=== PATIENT | female | born 1945 | race Caucasian/White ===

== ENCOUNTER 2017-03-31 20:29 | Emergency (ER) | payer BC ==
[2017-03-31 20:56] LABS: BASO % 0.1 % (0-6); EOS % 0.1 % (0-6); GRAN % 68.5 % (47-80); HEMATOCRIT 43.4 % (35.0-47.0); HEMOGLOBIN 14.9 gm/dl (11.6-16.0); LYMPH % 26.1 % (16-45); MEAN CELL VOLUME 86.1 fl (81-97); MEAN CORPUSCULAR HEMOGLOBIN 29.6 pg (27-33); MEAN CORPUSCULAR HGB CONC 34.3 g/dl (32-36); MEAN PLATELET VOLUME 9.4 fl (7.4-10.4); MONO % 5.2 % (0-9); PLATELET COUNT 302 K/uL (130-400); RED BLOOD COUNT 5.04 M/uL (3.80-5.40); RED CELL DISTRIBUTION WIDTH 12.7 % (11.5-14.5)
[2017-03-31] MEDS: 0.9 % SODIUM CHLORIDE 1000ML 1,000 ML IV SCH (21:10)
[2017-03-31] MEDS: ONDANSETRON HCL IV 4 MG/2 ML VIAL IVP ONE (21:10)
[2017-03-31 21:15] LABS: ALB/GLOB RATIO 1.5 (1.1-1.8); ALBUMIN 4.6 g/dL (4.0-5.0); ALKALINE PHOSPHATASE 53 U/L (35-104); ALT/SGPT 11 U/L (<33); AST/SGOT 18 U/L (10.0-35.0); BLOOD UREA NITROGEN 15 mg/dL (8-23); CREATININE 0.5 mg/dL (0.5-0.9); EST GLOMERULAR FILTRATION RATE > 60 mL/min; GLUCOSE,RANDOM 132 mg/dL (74-109); LIPASE 40 U/L (13-60); TOTAL PROTEIN 7.7 g/dL (6.6-8.7)
--- NOTE | 2017-03-31 21:15 | Emergency Department Record ---
History of Present Illness - General Chief Complaint: Abdominal Pain Stated Complaint: LOWER ABDOMINAL PAIN Time Seen by Provider: 03/31/17 20:47 Source: Patient Mode of Arrival: Ambulatory Limitations: No limitations - History of Present Illness Initial Comments: 71 yo female presents to ED for evaluation of lower abdominal pain symptoms that have been intermittent for the past 48 hours. Patient denies change in stools, fevers, chills, or urinary symptoms. Patient went to an urgent care earlier tonight for possible UTI and was told that her urine appeared normal.Patient does report that food worsens her symptoms. Patient denies previous abdominal surgery other than bladder suspension and JOAN. MD Complaint: Abdominal pain Onset/Timin -: Days(s) Location: LLQ, RLQ Radiation: None Migration to: No migration Severity: Mild Consistency: Intermittent Worsens With: Eating Associated Symptoms: Nausea - Related Data Patient : No Home Medications Medication Instructions Recorded Confirmed Last Taken Amlodipine Besylate [Norvasc] 5 mg PO DAILY 03/31/17 03/31/17 Unknown Aspirin [Aspir-Low] 81 mg PO DAILY 03/31/17 03/31/17 Unknown Calcium Carbonate/Vitamin D3 1 each PO DAILY 03/31/17 03/31/17 Unknown [Caltrate 600 Plus D3 Tablet] Levothyroxine Sodium [Synthroid] 137 mcg PO DAILY 03/31/17 03/31/17 Unknown Allergies Allergy/AdvReac Type Severity Reaction Status Date / Time iodine Allergy HIVES Verified 03/31/17 22:57 Travel Screening - Travel/Exposure Within Last 30 Days Have you traveled within the last 30 days?: No Review of Systems Constitutional: Denies: Chills, Fever, Malaise, Night sweats Eyes: Denies: Eye discharge, Eye pain ENT: Denies: Congestion, Ear pain, Epistaxis Respiratory: Denies: Cough, Dyspnea Cardiovascular: Denies: Chest pain, Dyspnea on exertion Endocrine: Denies: Fatigue, Heat or cold intolerance Gastrointestinal: Reports: Abdominal pain. Denies: Nausea, Vomiting Genitourinary: Denies: Dysuria, Frequency Musculoskeletal: Denies: Arthralgia, Back pain, Gout, Joint swelling Skin: Denies: Bruising, Change in color Neurological: Denies: Abnormal gait, Confusion, Headache, Seizure Psychiatric: Denies: Anxiety Hematological/Lymphatic: Denies: Anemia, Blood Clots Past Medical History - SOCIAL HISTORY Smoking Status: Never smoker Alcohol Use: None Drug Use: None - RESPIRATORY Hx Respiratory Disorders: No - CARDIOVASCULAR Hx Cardio Disorders: Yes Hx Hypertension: Yes - NEURO Hx Neuro Disorders: No - GI Hx GI Disorders: Yes Hx of Polyps: Yes (hx) - Hx Genitourinary Disorders: Yes Hx UTI: Yes (hx) - ENDOCRINE Hx Endocrine Disorders: Yes Hx Thyroid Disease: Yes (hypo) - MUSCULOSKELETAL Hx Musculoskeletal Disorders: No - PSYCH Hx Psych Problems: No - HEMATOLOGY/ONCOLOGY Hx Hematology/Oncology Disorders: No Family Medical History Any Significant Family History?: Yes Hx Cancer: Father *Cancer Comment: aunt, uncle Physical Exam - General General Appearance: Alert, Oriented x3, Cooperative, No acute distress (patient reports that she is pain-free currently) Limitations: No limitations - Head Head exam: Atraumatic, Normocephalic, Normal inspection Head exam detail: negative: Abrasion, Contusion, Barrera's sign, General tenderness, Hematoma, Laceration - Eye Eye exam: Normal appearance. negative: Conjunctival injection, Periorbital swelling, Periorbital tenderness, Scleral icterus - ENT Ear exam: negative: Auricular hematoma, Auricular trauma Nasal Exam: negative: Active bleeding, Discharge, Dried blood, Foreign body Mouth exam: negative: Drooling, Laceration, Muffled voice, Tongue elevation - Neck Neck exam: Normal inspection. negative: Meningismus, Tenderness - Respiratory Respiratory exam: Normal lung sounds bilaterally. negative: Rales, Respiratory distress, Rhonchi, Stridor - Cardiovascular Cardiovascular Exam: Regular rate, Normal rhythm, Normal heart sounds - GI/Abdominal GI/Abdominal exam: Soft. negative: Rebound, Rigid, Tenderness - Rectal Rectal exam: Deferred - exam: Deferred - Extremities Extremities exam: Normal inspection. negative: Calf tenderness, Pedal edema, Tenderness - Back Back exam: Denies: CVA tenderness (R), CVA tenderness (L) - Neurological Neurological exam: Alert, Normal gait, Oriented X3 - Psychiatric Psychiatric exam: Normal affect, Normal mood - Skin Skin exam: Normal color. negative: Abrasion Type of lesion: negative: abrasion Course Vital Signs 03/31/17 20:34 Temperature 98.4 F Pulse Rate 59 L Respiratory 18 Rate Blood Pressure 169/100 Pulse Ox 98 - Reevaluation(s) Reevaluation #1: 03/31/17 21:18 Labs reviewed and are grossly unremarkable for an acute process. UA pending. Reevaluation #2: 03/31/17 22:16 CT Abdomen and Pelvis: Diverticulosis without diverticulitis, ? thickening of the gallbladder fundus, further evaluation with US would be of benefit. Patient continues to be resting pain-free at this time, will arrange to bring the patient back in the morning for ultrasound of the gallbladder tomorrow morning. Patient and her daughter agree with the plan as discussed. Reevaluation #3: 03/31/17 22:41 Following placement of discharge instructions, patient has developed several (4 ) small areas of redness to the left shoulder, patient reports similar reaction that worsened after eating shellfish several years ago and is concerned about possible allergic reaction (? IV contrast). Patient denies any wheezing, difficulty in breathing, or throat swelling symptoms. Will administer Benadryl IV with the plan to reassess in the morning when she returns for her US. Patient and family agrees with the plan as discussed. Medical Decision Making - Lab Data Result diagrams: 03/31/17 20:50 03/31/17 20:50 Lab Results 03/31/17 Range/Units 20:50 WBC 9.0 (4.2-12.2) K/uL RBC 5.04 (3.80-5.40) M/uL Hgb 14.9 (11.6-16.0) gm/dl Hct 43.4 (35.0-47.0) % MCV 86.1 (81-97) fl MCH 29.6 (27-33) pg MCHC 34.3 (32-36) g/dl RDW 12.7 (11.5-14.5) % Plt Count 302 (130-400) K/uL MPV 9.4 (7.4-10.4) fl Gran % 68.5 (47-80) % Lymphocytes % 26.1 (16-45) % Monocytes % 5.2 (0-9) % Eosinophils % 0.1 (0-6) % Basophils % 0.1 (0-6) % Disposition Disposition: Discharge Clinical Impression: Abdominal pain Qualifiers: Abdominal location: generalized Qualified Code(s): R10.84 - Generalized abdominal pain Disposition: Home, Self-Care Condition: (2) Stable Instructions: Abdominal Pain (ED) Additional Instructions: Return to ED tomorrow morning around 8:15 for US of the abdomen. Follow-up with your family doctor in 1-3 days as directed. Forms: Patient Portal Access Time of Disposition: 22:27 Quality - Quality Measures Quality Measures: N/A - Blood Pressure Screening Does Patient Have Any of the Following: Active Dx of HTN Blood Pressure Classification: Hypertensive Reading Systolic Measurement: 161 Diastolic Measurement: 90 Screening for High Blood Pressure: Patient Exclusion, Hx of HTN [G9744]
[2017-03-31 21:22] LABS: URINE APPEARANCE CLEAR; URINE BILIRUBIN NEGATIVE (NEGATIVE); URINE COLOR YELLOW; URINE GLUCOSE (UA) NEGATIVE (NEGATIVE); URINE KETONE NEGATIVE (NEGATIVE); URINE LEUKOCYTE ESTERASE NEGATIVE (NEGATIVE); URINE NITRITE NEGATIVE (NEGATIVE); URINE PROTEIN NEGATIVE (NEGATIVE); URINE UROBILINOGEN 0.2 E.U./dL (0.20 - 1.00)
[2017-03-31 21:23] LABS: URINE BLOOD NEGATIVE (NEGATIVE)
[2017-03-31] MEDS: DIPHENHYDRAMINE HCL IV 50 MG/ML VIAL IVP ONE (22:44)
== END 2017-03-31 22:58 | disposition home or self-care (01) ==
LOC: ER 20:29 → EDBD 20:29 → ER 22:58
DX: R10.84 Generalized abdominal pain (principal); R11.0 Nausea; I10 Essential (primary) hypertension
CPT/HCPCS: 99284 ×2; 96374; 96375; 83690; 85025; 80053; 81003; 74177; Q9967; J2405; J1200; J7030

== ENCOUNTER 2017-04-01 08:16 | Emergency (ER) | payer BC ==
--- NOTE | 2017-04-01 08:29 | Emergency Department Record ---
History of Present Illness - General Chief Complaint: Abdominal Pain Stated Complaint: ULTRA SOUND OF GALL BLADDER Time Seen by Provider: 04/01/17 08:27 Source: Patient, RN notes reviewed - History of Present Illness Initial Comments: patient is feeling better and no abdominal pain and here for US of abd. Seen by Dr. Flores last night with CT scan of abd and pelvic essentially neg with a small area fundus thickening of GB and rad recommended US. Some diverticulosis. No fever today and she didn't want labs done because she feels better. - Related Data Previous Rx's Medication Instructions Recorded Dicyclomine HCl [Bentyl] 10 mg PO Q8H #20 cap 04/01/17 Allergies Allergy/AdvReac Type Severity Reaction Status Date / Time iodine Allergy HIVES Verified 03/31/17 22:57 Review of Systems Reviewed: No additional complaints except as noted below Constitutional: Reports: As per HPI. Denies: Chills, Fever, Malaise, Night sweats, Weakness, Weight change Eyes: Reports: As per HPI. Denies: Eye discharge, Eye pain, Photophobia, Vision change ENT: Reports: As per HPI. Denies: Congestion, Dental pain, Ear pain, Epistaxis , Hearing loss, Throat pain Respiratory: Reports: As per HPI. Denies: Cough, Dyspnea, Hemoptysis, Stridor, Wheezes Cardiovascular: Reports: As per HPI. Denies: Arrhythmia, Chest pain, Dyspnea on exertion, Edema, Murmurs, Orthopnea, Palpitations, Paroxysmal nocturnal dyspnea, Rheumatic Fever, Syncope Endocrine: Reports: As per HPI. Denies: Fatigue, Heat or cold intolerance, Polydipsia, Polyuria Gastrointestinal: Reports: As per HPI, Abdominal pain. Denies: Constipation, Diarrhea, Hematemesis, Hematochezia, Melena, Nausea, Vomiting Genitourinary: Reports: As per HPI. Denies: Abnormal menses, Discharge, Dyspareunia, Dysuria, Frequency, Hematuria, Incontinence, Retention, Urgency Musculoskeletal: Reports: As per HPI. Denies: Arthralgia, Back pain, Gout, Joint swelling, Myalgia, Neck pain Skin: Reports: As per HPI. Denies: Bruising, Change in color, Change in hair/ nails, Lesions, Pruritus, Rash Neurological: Reports: As per HPI. Denies: Abnormal gait, Confusion, Headache, Numbness, Paresthesias, Seizure, Tingling, Tremors, Vertigo, Weakness Psychiatric: Reports: As per HPI. Denies: Anxiety, Auditory hallucinations, Depression, Homicidal thoughts, Suicidal thoughts, Visual hallucinations Hematological/Lymphatic: Reports: As per HPI. Denies: Anemia, Blood Clots, Easy bleeding, Easy bruising, Swollen glands Past Medical History - SOCIAL HISTORY Smoking Status: Never smoker Drug Use: None - RESPIRATORY Hx Respiratory Disorders: No - CARDIOVASCULAR Hx Cardio Disorders: Yes Hx Hypertension: Yes - NEURO Hx Neuro Disorders: No - GI Hx GI Disorders: Yes Hx of Polyps: Yes (hx) - Hx Genitourinary Disorders: Yes Hx UTI: Yes (hx) - ENDOCRINE Hx Endocrine Disorders: Yes Hx Thyroid Disease: Yes (hypo) - MUSCULOSKELETAL Hx Musculoskeletal Disorders: No - PSYCH Hx Psych Problems: No - HEMATOLOGY/ONCOLOGY Hx Hematology/Oncology Disorders: No Family Medical History Hx Cancer: Father *Cancer Comment: aunt, uncle Physical Exam - General General Appearance: Alert, Oriented x3, Cooperative, No acute distress - Head Head exam: Normal inspection - Eye Eye exam: Normal appearance, PERRL Pupils: Normal accommodation - ENT ENT exam: Normal exam, Mucous membranes moist, Normal external ear exam, Normal orophraynx, TM's normal bilaterally Ear exam: Normal external inspection. negative: External canal tenderness Nasal Exam: Normal inspection. negative: Discharge, Sinus tenderness Mouth exam: Normal external inspection, Tongue normal Teeth exam: Normal inspection. negative: Dental caries Throat exam: Normal inspection. negative: Tonsillar erythema, Tonsillar exudate - Neck Neck exam: Normal inspection, Full ROM. negative: Tenderness - Respiratory Respiratory exam: Normal lung sounds bilaterally. negative: Respiratory distress - Cardiovascular Cardiovascular Exam: Regular rate, Normal rhythm, Normal heart sounds - GI/Abdominal GI/Abdominal exam: Soft, Normal bowel sounds. negative: Tenderness - Rectal Rectal exam: Deferred - exam: Deferred - Extremities Extremities exam: Normal inspection, Full ROM, Normal capillary refill. negative: Tenderness - Back Back exam: Reports: Normal inspection, Full ROM. Denies: Muscle spasm, Rash noted, Tenderness - Neurological Neurological exam: Alert, Normal gait, Oriented X3, Reflexes normal - Psychiatric Psychiatric exam: Normal affect, Normal mood - Skin Skin exam: Dry, Intact, Normal color, Warm Medical Decision Making - Data Complexity MDM Data: X-Ray Ordered and/or Reviewed (gall bladder stones) Disposition Clinical Impression: Gall bladder stones Abdominal pain Qualifiers: Abdominal location: lower abdomen, unspecified Qualified Code(s): R10.30 - Lower abdominal pain, unspecified Disposition: Home, Self-Care Condition: (1) Good Instructions: Abdominal Pain (ED) Additional Instructions: follow up with family DrKimmie in 2-5 days and sooner if more problems. or return to the emergency dept. use bentyl 10 every 8 hour prn abd pain. Prescriptions: Dicyclomine HCl [Bentyl] 10 mg PO Q8H #20 cap Forms: Patient Portal Access Time of Disposition: 09:17 Quality - Quality Measures Quality Measures: N/A - Blood Pressure Screening Does Patient Have Any of the Following: No, Active Dx of HTN Blood Pressure Classification: Pre-Hypertensive BP Reading Systolic Measurement: 139 Diastolic Measurement: 82 Screening for High Blood Pressure: Patient Exclusion, Hx of HTN [G9744]
== END 2017-04-01 09:48 | disposition home or self-care (01) ==
LOC: ER 08:16
DX: K80.20 Calculus of gallbladder without cholecystitis without obstruction (principal)
CPT/HCPCS: 76700; 99283